=== PATIENT | female | born 1935 | race Caucasian/White ===

== ENCOUNTER 2017-08-11 07:25 | Emergency (ER) | payer OTHER, BC ==
[~2017-08-11] VITALS: Ht 157.5 cm; Wt 55.9 kg
[2017-08-11 08:08] LABS: HEMATOCRIT 43.7 % (36.0-46.0); MCH 30.7 PG (29.0-34.0); MCHC 32.7 G/DL (30.0-36.0); MCV 93.8 FL (83-99); MEAN PLAT.VOLUME 9.3 uM^3 (9.5-12.4); PLATELET COUNT 267 K/uL (156-360); RBC DIS.WIDTH-CV 13.4 % (11.8-14.6); RBC DIS.WIDTH-SD 46.1 % (39-53); RED BLOOD COUNT 4.66 M/uL (3.80-5.20); WHITE BLOOD COUNT 9.9 K/uL (4.1-10.2)
[2017-08-11 08:20] LABS: PROTHROMBIN TIME 11.3 SEC (10.2-12.9)
[2017-08-11 08:22] LABS: PTT 30.8 SEC (25-37)
[2017-08-11 08:31] LABS: ANION GAP 6 MEQ/L (2-14); CHLORIDE 107 MEQ/L (99-109); POTASSIUM 4.5 MEQ/L (3.7-5.4); SAMPLE HEMOLYSIS CHECK 0; SAMPLE ICTERIC CHECK 0; SAMPLE LIPEMIA CHECK 0; SODIUM 141 MEQ/L (136-147)
[2017-08-11 08:37] LABS: GFR ESTIMATE (CALCULATED) 56 mL/min/; GLUCOSE 115 mg/dL (70-99); UREA NITROGEN (BUN) 30 mg/dL (9-23)
[2017-08-11] MEDS ORDERED: OCEAN GEL14 GM BOTH NARES (09:05)
[2017-08-11 09:31] VITALS: BP 149/71
== END 2017-08-11 09:35 | disposition home or self-care (01) ==
LOC: EME 07:25
PROVIDERS: Nurse Practitioner Family
DX: R04.0 Epistaxis (principal); N18.9 Chronic kidney disease, unspecified; G20 Parkinson's disease; R19.7 Diarrhea, unspecified; R00.0 Tachycardia, unspecified; Z87.442 Personal history of urinary calculi; Z90.12 Acquired absence of left breast and nipple
CPT/HCPCS: 80048; 85027; 85610; 85730; 99281; 99284